=== PATIENT | female | born 1970 | race American Indian/Alaskan Native ===

== ENCOUNTER 2017-08-18 08:59 | Inpatient (IN) | payer BC ==
[~2017-08-18 08:59] MED LIST: ANCEF/STERILE WATER 2 GM/20 ML 2 GM/20 ML SYRINGE IV NR; APRESOLINE IV PRN; FLAGYL 500 MG/100 ML 500 MG/100 ML BAG IV NR; LOVENOX SUB-Q NR; MORPHINE IV PRN; REGLAN IV PRN; ZOFRAN IV PRN
[2017-08-18] MEDS ORDERED: TRANSDERM-SCOP TD SCH (10:00)
--- NOTE | 2017-08-18 10:22 | Anesthesia Day of Surgery ---
Anesthesia Day of Surgery - Day of Surgery Patient Examined: Yes Patient H&P Reviewed: Yes Patient is NPO: Yes Beta Blockers: Yes Cardiac Clearance: Yes
[2017-08-18] MEDS ORDERED: MORPHINE IV PRN ×2 (10:23→13:36)
--- NOTE | 2017-08-18 10:23 | Anesthesia Consultation ---
Anesthesia Consult and Med Hx Date of service: 08/18/17 - Airway Anesthetic Teeth Evaluation: Good, Chipped (molar) ROM Head & Neck: Adequate Mental/Hyoid Distance: Adequate Mallampati Class: Class II Intubation Access Assessment: Probably Good - Pulmonary Exam CTA: Yes - Cardiac Exam Cardiac Exam: RRR - Pre-Operative Health Status ASA Pre-Surgery Classification: ASA3 Proposed Anesthetic Plan: General - Pulmonary Hx Smoking: No Hx Asthma: No Hx Sleep Apnea: Yes - Cardiovascular System Hx Hypertension: Yes (over 10 years) - Central Nervous System Hx Psychiatric Problems: No - Gastrointestinal Hx Gastroesophageal Reflux Disease: Yes - Endocrine Hx Renal Disease: No Hx Liver Disease: No Hx Non-Insulin Dependent Diabetes: No - Hematic Hx Anemia: Yes - Other Systems Hx Alcohol Use: Yes (occasionally) Hx Substance Use: No Hx Cancer: No Hx Obesity: Yes
[2017-08-18] MEDS: LACTATED RINGERS 1,000 ML IV SCH ×4 (10:55→23:02)
[2017-08-18] MEDS ORDERED: PEPCID IV NR (11:00)
[2017-08-18] MEDS ORDERED: VERSED IV NR (11:00)
[2017-08-18] MEDS ORDERED: ZEMURON IV ONE (11:13)
[2017-08-18] MEDS ORDERED: XYLOCAINE MPF 2% ONE (11:13)
[2017-08-18] MEDS ORDERED: SUBLIMAZE ONE (11:14)
[2017-08-18] MEDS ORDERED: DIPRIVAN 10 MG/ML IV ONE ×2 (11:15→12:07)
[2017-08-18] MEDS ORDERED: MARCAINE 0.5% 30 ML INFILTRATI ONE (11:39)
[2017-08-18] MEDS ORDERED: NACL 0.9% IR ONE (12:54)
[2017-08-18] MEDS ORDERED: MARCAINE 0.5% INFILTRATI ONE (12:57)
[2017-08-18] MEDS ORDERED: DECADRON ONE (13:02)
[2017-08-18] MEDS ORDERED: ZOFRAN ONE (13:02)
[2017-08-18] MEDS ORDERED: NEOSTIGMINE ONE (13:03)
[2017-08-18] MEDS ORDERED: ROBINUL ONE (13:03)
[2017-08-18] MEDS ORDERED: ZOFRAN IV PRN (13:36)
--- NOTE | 2017-08-18 13:36 | Post Anesthesia Evaluation ---
- Post Anesthesia Evaluation Patient Participated: Yes Airway Patent: Yes Stable Respiratory Function: Yes Nausea/Vomiting: No Temp > 96.8F: Yes Pain Manageable: Yes Adequeate Hydration: Yes Anesthesia Complications: No Block Receding Appropriately: Not Applicable Patient on Ventilator: No
[2017-08-18] MEDS: MYLICON PO PRN (13:59)
[2017-08-18] MEDS: NORCO PO PRN (14:16)
[2017-08-19] MEDS: MYLICON PO PRN ×2 (04:33→12:54)
[2017-08-19 04:51] LABS: Basophils % (Auto) 0.2 % (0.0-1.8); Hematocrit 39.4 % (30.3-42.9); Hemoglobin 13.3 gm/dl (10.1-14.3); Mean Corpuscular HGB Conc 34 % (30-34); Mean Corpuscular Hemoglobin 30 pg (28-32); Mean Corpuscular Volume 89 fl (79-97); Platelet Count 226 K/mm3 (140-440); Red Blood Count 4.45 M/mm3 (3.65-5.03); Red Cell Distribution Width 13.3 % (13.2-15.2); White Blood Count 19.5 K/mm3 (4.5-11.0)
[2017-08-19 05:08] LABS: Anion Gap 18 mmol/L; BUN/Creatinine Ratio 16; Blood Urea Nitrogen 8 mg/dL (7-17); Carbon Dioxide 24 mmol/L (22-30); Chloride 97.4 mmol/L (98-107); Glucose 159 mg/dL (65-100); Potassium 3.9 mmol/L (3.6-5.0); Sodium 135 mmol/L (137-145)
[2017-08-19] MEDS: NORCO PO PRN (08:17)
[2017-08-19] MEDS: LACTATED RINGERS 1,000 ML IV SCH (08:23)
[2017-08-19] MEDS ORDERED: LOVENOX SUB-Q SCH (10:00)
[2017-08-19] MEDS ORDERED: TOPROL XL PO SCH (10:00)
--- NOTE | 2017-08-19 11:34 | Discharge Summary ---
Providers - Providers Date of Admission: 08/18/17 08:59 Attending physician: LUIS GEORGE Hospitalization Condition: Good Procedures: laparoscopic sleeve gastrectomy with hiatal hernia repair Hospital course: 47 y.o. F presented to ambulatory surgery for laparoscopic sleeve gastrectomy. Pt tolerated the procedure well. On POD 1 she tolerated liquids and ambulated well. She denies nausea or vomiting. Her pain was controlled. Disposition: DC- TO HOME OR SELFCARE Core Measure Documentation - Palliative Care Palliative Care/ Comfort Measures: Not Applicable - Core Measures Any of the following diagnoses?: none Exam - Physical Exam Narrative exam: Gen: A+Ox3 resp: equal rise and fall of chest cardio: RRR abd: soft, tender at incision sites. incision sites: dry blood on dressings. no rebound no guarding. obese ext: no c/c/e - Constitutional Vitals: Temp Pulse Resp BP Pulse Ox 98.6 F 86 18 184/86 98 08/19/17 08:26 08/19/17 11:19 08/19/17 08:26 08/19/17 11:19 08/19/17 04:17 Plan Activity: other (no lifting >15lbs for 6 weeks ) Diet: clear liquids (sugar free clears ) Wound: keep clean and dry Additional Instructions: follow up for wound check Follow up with: STEFFEN DEJESUS [Other] - 7 Days
[2017-08-19 12:13] VITALS: BP 114/69
== END 2017-08-19 13:45 | disposition home or self-care (01) | DRG 327 ==
LOC: 3A 08:59 → 3B-SURG 14:00
PROVIDERS: ADMIT Specialist; ATTEND Specialist
PROC: 0DB64Z3 Excision of Stomach, Percutaneous Endoscopic Approach, Vertical (ICD-10-PCS; principal; 2017-08-18)
PROC: 0BQT4ZZ Repair Diaphragm, Percutaneous Endoscopic Approach (ICD-10-PCS; 2017-08-18)
DX: K44.9 Diaphragmatic hernia without obstruction or gangrene (principal); Z68.42 Body mass index [BMI] 45.0-49.9, adult; E66.01 Morbid (severe) obesity due to excess calories; I10 Essential (primary) hypertension; I89.0 Lymphedema, not elsewhere classified; E78.5 Hyperlipidemia, unspecified; I51.7 Cardiomegaly; F32.9 Major depressive disorder, single episode, unspecified; Z83.3 Family history of diabetes mellitus; Z82.49 Family history of ischemic heart disease and other diseases of the circulatory system; Z90.710 Acquired absence of both cervix and uterus; Z88.2 Allergy status to sulfonamides
CPT/HCPCS: 36415; 80048; 85025; 88307; 94760; C9250; J0360; J0690; J1100; J1650; J2250; J2270; J2405; J2704; J2710; J2765; J3010; J7120